=== PATIENT | female | born 1965 | race Caucasian/White ===

== ENCOUNTER → 2020-06-24 | Outpatient (CLI) | payer OTHER ==
--- NOTE | 2020-06-24 16:52 | Diagnostic Imaging Report ---
INDICATION: History of intracranial hemorrhage one year prior, now with seizures and left-sided weakness. TECHNIQUE: Multiple contiguous axial images were obtained through the brain without the use of intravenous contrast. Auto Exposure Controls were utilized during the CT exam to meet ALARA standards for radiation dose reduction. EXAMINATION: Noncontrast brain CT is performed. COMPARISON: There is no previous study for comparison. FINDINGS: Patient has had previous right frontotemporal craniotomy. Calvarium appears otherwise unremarkable. There is encephalomalacic change with low-density change in the right temporal lobe, there is some temporal lobe volume loss with dilatation of the right temporal horn. The remainder of the brain parenchyma was unremarkable in appearance. There is some dural thickening beneath the bone flap at the craniotomy site but no evidence of acute hemorrhage. Ventricles are nondilated. There is a small amount of fluid in the left maxillary sinus. Orbital contents are unremarkable. IMPRESSION: Evidence of previous right-sided craniotomy with some encephalomalacic change in the right temporal lobe. There is no acute hemorrhage or mass effect. Consider MRI follow-up if clinically warranted. Dictated by: Dictated on workstation # [id number]
== END ==
LOC: RAD 16:04
PROVIDERS: ATTEND Pediatrics
DX: G93.89 Other specified disorders of brain (principal); R56.9 Unspecified convulsions; Z98.890 Other specified postprocedural states
CPT/HCPCS: 70450

== ENCOUNTER 2022-10-11 15:28 | Emergency (ER) | payer MEDICAID ==
[~2022-10-11] VITALS: Ht 165.1 cm; Wt 63.5 kg
--- NOTE | 2022-10-11 15:46 | ED General ---
General Stated Complaint: SEIZURES Source of Information: Patient, Family (son) Exam Limitations: No Limitations History of Present Illness Date Seen by Provider: Oct 11, 2022 Time Seen by Provider: 15:39 Initial Comments 56-year-old female presents to the emergency department today with her son. Her son request that she have a "general medical checkup because I am concerned about her health." He states she drinks heavily. She has a seizure disorder and previously took Depakote but quit this 6 months ago because she did not like the way it made her feel. She has had increased seizures since that time. She had a seizure this morning. Her son wants to make sure is not from dehydration or drinking. It was a typical seizure for her that starts with tingling in her left hand and her right face and then progressing to a generalized tonic-clonic type seizure. She has had this problem for at least 5 to 7 years, possibly longer. She does state that she drinks heavily, hard liquor every day. All other systems reviewed and negative except documented per HPI. Voice recognition software was used to help create this chart Allergies and Home Medications Allergies Coded Allergies: No Known Drug Allergies (Unverified , 09/22/12) Patient Home Medication List Home Medication List Reviewed: Yes Review of Systems Review of Systems Constitutional: see HPI Past Jnmuhdr-Fjlivq-Pwckaj Hx Patient Social History Tobacco Use?: Yes Use of E-Cig and/or Vaping dev: No Substance use?: No Alcohol Use?: Yes Seasonal Allergies Seasonal Allergies: No Past Medical History Surgeries: No Respiratory: No Cardiac: No Neurological: No Reproductive Disorders: No Sexually Transmitted Disease: No HIV/AIDS: No Gastrointestinal: No Musculoskeletal: No Endocrine: No Cancer: No Psychosocial: No Integumentary: No Blood Disorders: No Family Medical History No Pertinent Family Hx Physical Exam Vital Signs Vital Signs - First Documented 10/11/22 15:36 Temp 36.3 Pulse 90 Resp 15 B/P (MAP) 144/73 (96) O2 Delivery Room Air Capillary Refill : Height, Weight, BMI Height: 5'5" Weight: 160lbs. oz. 72.900414ts; 26.62 BMI Method:Estimated General Appearance: No Apparent Distress, WD/WN Eyes: Bilateral Eye Normal Inspection, Bilateral Eye PERRL, Bilateral Eye EOMI HEENT: Normal ENT Inspection, Pharynx Normal Neck: Full Range of Motion, Normal Inspection, Non Tender, Supple Respiratory: Chest Non Tender, Lungs Clear, Normal Breath Sounds, No Accessory Muscle Use, No Respiratory Distress Cardiovascular: Regular Rate, Rhythm, No Murmur, Normal Peripheral Pulses Gastrointestinal: Normal Bowel Sounds, No Organomegaly, Non Tender, Soft Back: Normal Inspection, No Vertebral Tenderness Extremity: Normal Capillary Refill, Normal Inspection, Normal Range of Motion, Non Tender, No Calf Tenderness Neurologic/Psychiatric: Alert, Oriented x3, No Motor/Sensory Deficits, Normal Mood/Affect, assistant manager II-XII Norm as Tested Skin: Normal Color, Warm/Dry Progress/Results/Core Measures Suspected Sepsis SIRS Temperature: Pulse: Respiratory Rate: Laboratory Tests 10/11/22 15:51: White Blood Count 15.8H Blood Pressure / Mean: Laboratory Tests 10/11/22 15:51: Creatinine 0.74, Platelet Count 270, Total Bilirubin 0.9 Results/Orders Lab Results Laboratory Tests Test 10/11/22 15:51 Range/Units White Blood Count 15.8 H 4.3-11.0 10^3/uL Red Blood Count 5.15 H 3.80-5.11 10^6/uL Hemoglobin 17.6 H 11.5-16.0 g/dL Hematocrit 49 35-52 % Mean Corpuscular Volume 96 80-99 fL Mean Corpuscular Hemoglobin 34 25-34 pg Mean Corpuscular Hemoglobin Concent 36 32-36 g/dL Red Cell Distribution Width 11.7 10.0-14.5 % Platelet Count 270 130-400 10^3/uL Mean Platelet Volume 10.3 9.0-12.2 fL Immature Granulocyte % (Auto) 1 % Neutrophils (%) (Auto) 91 H 42-75 % Lymphocytes (%) (Auto) 5 L 12-44 % Monocytes (%) (Auto) 3 0-12 % Eosinophils (%) (Auto) 0 0-10 % Basophils (%) (Auto) 1 0-10 % Neutrophils # (Auto) 14.4 H 1.8-7.8 10^3/uL Lymphocytes # (Auto) 0.8 L 1.0-4.0 10^3/uL Monocytes # (Auto) 0.4 0.0-1.0 10^3/uL Eosinophils # (Auto) 0.0 0.0-0.3 10^3/uL Basophils # (Auto) 0.1 0.0-0.1 10^3/uL Immature Granulocyte # (Auto) 0.1 0.0-0.1 10^3/uL Neutrophils % (Manual) 97 % Lymphocytes % (Manual) 3 % Monocytes % (Manual) 0 % Eosinophils % (Manual) 0 % Basophils % (Manual) 0 % Band Neutrophils 0 % Blood Morphology Comment NORMAL Sodium Level 135 135-145 MMOL/L Potassium Level 4.1 3.6-5.0 MMOL/L Chloride Level 100 98-107 MMOL/L Carbon Dioxide Level 15 L 21-32 MMOL/L Anion Gap 20 H 5-14 MMOL/L Blood Urea Nitrogen 5 L 7-18 MG/DL Creatinine 0.74 0.60-1.30 MG/DL Estimat Glomerular Filtration Rate 94 BUN/Creatinine Ratio 7 Glucose Level 155 H 70-105 MG/DL Calcium Level 9.5 8.5-10.1 MG/DL Corrected Calcium 9.2 8.5-10.1 MG/DL Total Bilirubin 0.9 0.1-1.0 MG/DL Aspartate Amino Transf (AST/SGOT) 54 H 5-34 U/L Alanine Aminotransferase (ALT/SGPT) 50 0-55 U/L Alkaline Phosphatase 87 40-136 U/L Total Protein 7.8 6.4-8.2 GM/DL Albumin 4.4 3.2-4.5 GM/DL My Orders Orders - SEDRICK ZAPATA DO Comprehensive Metabolic Panel (10/11/22 15:43) Cbc With Automated Diff (10/11/22 15:43) Ns Iv 1000 Ml (Sodium Chloride 0.9%) (10/11/22 15:50) Iv/Invasive Line Insertion .IV INSERT (10/11/22 15:50) Manual Differential (10/11/22 15:51) Vital Signs/I&O 10/11/22 15:36 Temp 36.3 Pulse 90 Resp 15 B/P (MAP) 144/73 (96) O2 Delivery Room Air Capillary Refill : Departure Communication (Admissions) The patient is hemodynamically stable neurologically intact. No recurrence of seizure activity here. Labs are unremarkable outside of mild leukocytosis. She has no infectious symptoms. Chemistry is remarkable only for mild elevation in her AST as well as mild acidosis, consistent with heavy drinking. Renal function is normal as are her electrolytes. This is likely not contributing to her seizures. I recommended that she follow-up with her primary doctor to discuss starting Keppra for seizures. She stopped taking her Depakote because of side effect profile I think Keppra would likely have less of this. She states understanding. She is discharged in stable condition. Impression Primary Impression: Seizure disorder Disposition: HOME, SELF-CARE Condition: Stable Departure-Patient Inst. Referrals: NO,LOCAL PHYSICIAN (PCP/Family) Primary Care Physician Patient Instructions: Seizures Add. Discharge Instructions: Your labs are relatively unremarkable today outside of some mild elevation in your liver enzymes which is consistent with drinking. Regarding your seizures, I think this is related to your seizure disorder and not necessarily your alcohol intake however drinking alcohol does make you more likely to have more frequent seizures. I recommend you talk to your primary doctor about possibly starting Keppra, and antiseizure medicine. This will very likely have less side effects than the Depakote that you were on previously. Follow-up with your [facility] doctor for any nonemergent needs. Return to the emergency department for any severe concerns SEDRICK ZAPATA DO Oct 11, 2022 15:46
[2022-10-11] MEDS ORDERED: NS IV 1000 ML 1,000 ML IV STA (15:50)
[2022-10-11] MEDS ORDERED: fentaNYL INJECTION 100 MCG/2 ML VIAL IVP ONE (16:00)
[2022-10-11 16:04] LABS: BASOPHILS # (AUTO) 0.1 10^3/uL (0.0-0.1); BASOPHILS % (AUTO) 1 % (0-10); EOSINOPHILS % (AUTO) 0 % (0-10); HEMATOCRIT 49 % (35-52); HEMOGLOBIN 17.6 g/dL (11.5-16.0); LYMPHOCYTES # (AUTO) 0.8 10^3/uL (1.0-4.0); LYMPHOCYTES % (AUTO) 5 % (12-44); MEAN CORPUSCULAR HEMOGLOBIN 34 pg (25-34); MEAN CORPUSCULAR HGB CONC 36 g/dL (32-36); MEAN CORPUSCULAR VOLUME 96 fL (80-99); MEAN PLATELET VOLUME 10.3 fL (9.0-12.2); MONOCYTES # (AUTO) 0.4 10^3/uL (0.0-1.0); MONOCYTES % (AUTO) 3 % (0-12); NEUTROPHILS # (AUTO) 14.4 10^3/uL (1.8-7.8); NEUTROPHILS % (AUTO) 91 % (42-75); PLATELET COUNT 270 10^3/uL (130-400); WHITE BLOOD COUNT 15.8 10^3/uL (4.3-11.0)
[2022-10-11 16:18] LABS: ALBUMIN 4.4 GM/DL (3.2-4.5); POTASSIUM 4.1 MMOL/L (3.6-5.0)
[2022-10-11 16:19] LABS: CALCIUM 9.5 MG/DL (8.5-10.1)
[2022-10-11 16:20] LABS: TOTAL PROTEIN 7.8 GM/DL (6.4-8.2)
[2022-10-11 16:22] LABS: BILIRUBIN,TOTAL 0.9 MG/DL (0.1-1.0)
[2022-10-11 16:24] LABS: CREATININE SERUM 0.74 MG/DL (0.60-1.30)
[2022-10-11 16:29] LABS: BAND NEUTROPHILS 0 %; BASOPHILS % (MANUAL) 0 %; EOSINOPHILS % (MANUAL) 0 %; LYMPHOCYTES % (MANUAL) 3 %; MONOCYTES % (MANUAL) 0 %; NEUTROPHILS % (MANUAL) 97 %; RBC MORPH NORMAL
[2022-10-11 16:51] VITALS: BP 137/85
== END 2022-10-11 16:51 | disposition home or self-care (01) ==
LOC: EDUNIT# 15:28 → ER 15:31
DX: G40.409 Other generalized epilepsy and epileptic syndromes, not intractable, without status epilepticus (principal); D72.829 Elevated white blood cell count, unspecified; E87.20 Acidosis, unspecified; R74.01 Elevation of levels of liver transaminase levels; Z28.310 Unvaccinated for COVID-19
CPT/HCPCS: 36415; 80053; 85007; 85027; 99281